=== PATIENT | male | born 1990 | race Caucasian/White ===

== ENCOUNTER → 2018-10-27 | Outpatient (CLI) | payer BC, OTHER ==
[~2018-10-27] MED LIST: ALPR2TAB2 PO; LOXA10CA6 PO; LURA80TA PO; MELA1TAB9 PO; PALI3TAB2 PO; [UNRECOGNIZED DRUG - CODE] PO
--- NOTE | 2018-10-27 13:08 | Diagnostic Imaging Report ---
INDICATION: Left testicular pain. FINDINGS: Right testicle measures 4.4 x 1.8 x 2.9 cm, and the left testicle measures 4.4 x 2.0 x 2.5 cm. Both testes demonstrate normal homogeneous echotexture. No discrete mass is seen. There is blood flow to both testes. There are tiny echogenic structures within both testicles suggestive of microliths. There are small bilateral hydroceles present. The epididymides are unremarkable. There is no varicocele. IMPRESSION: 1. No evidence of testicular mass or vascular compromise. 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 2. Small bilateral hydroceles. Dictated by: Dictated on workstation # [id number]
== END ==
LOC: RAD 12:03
PROVIDERS: ATTEND Nurse Practitioner Family
DX: N43.3 Hydrocele, unspecified (principal)
CPT/HCPCS: 76870

== ENCOUNTER → 2022-05-31 | Outpatient (CLI) | payer SELFPAY | LOC: LAB 11:19 | PROVIDERS: ATTEND Physician Assistant | DX: N46.9 Male infertility, unspecified (principal) | CPT/HCPCS: 89320 ==

== ENCOUNTER 2022-06-27 16:53 | Emergency (ER) | payer OTHER ==
[~2022-06-27] VITALS: Ht 172 cm; Wt 72.0 kg
[2022-06-27 17:10] LABS: BASOPHILS # (AUTO) 0.1 10^3/uL (0.0-0.1); BASOPHILS % (AUTO) 1 % (0-10); EOSINOPHILS # (AUTO) 0.6 10^3/uL (0.0-0.3); EOSINOPHILS % (AUTO) 6 % (0-10); HEMATOCRIT 42 % (40-54); HEMOGLOBIN 14.4 g/dL (13.3-17.7); LYMPHOCYTES # (AUTO) 3.9 10^3/uL (1.0-4.0); LYMPHOCYTES % (AUTO) 38 % (12-44); MEAN CORPUSCULAR HEMOGLOBIN 31 pg (25-34); MEAN CORPUSCULAR HGB CONC 35 g/dL (32-36); MEAN CORPUSCULAR VOLUME 90 fL (80-99); MEAN PLATELET VOLUME 9.2 fL (9.0-12.2); MONOCYTES # (AUTO) 0.5 10^3/uL (0.0-1.0); MONOCYTES % (AUTO) 4 % (0-12); NEUTROPHILS # (AUTO) 5.3 10^3/uL (1.8-7.8); NEUTROPHILS % (AUTO) 51 % (42-75); PLATELET COUNT 511 10^3/uL (130-400); WHITE BLOOD COUNT 10.4 10^3/uL (4.3-11.0)
--- NOTE | 2022-06-27 17:11 | Diagnostic Imaging Report ---
EXAMINATION: Chest 1 view HISTORY: Chest pain COMPARISON: None available. FINDINGS: The lungs are clear without edema or pneumonia. No pleural effusion or pneumothorax. Heart size is normal. IMPRESSION: 1. Clear lungs. Dictated by: Dictated on workstation # [id number]
[2022-06-27] MEDS ORDERED: ASPIRIN 81 MG CHEW (CHILDREN'S ASA) PO STA (17:22)
[2022-06-27 17:29] LABS: PROTHROMBIN TIME PATIENT 13.1 SEC (12.2-14.7)
--- NOTE | 2022-06-27 17:29 | ED Chest Pain ---
General Chief Complaint: Chest Pain Stated Complaint: CHEST PAINS Nursing Triage Note: PT CO OF CHEST PAIN FOR COUPLES TIGHTEN AND SQUEEZING. RATES PAIN 4/10 AT THIS X. PT DOES HAVE ANXIETY AT TIMES. (KIRILL PRETTY) History of Present Illness Date Seen by Provider: Jun 27, 2022 Time Seen by Provider: 17:00 Initial Comments 32 year old male reports for 3-4 days history of intermittent chest pain. Present at this time, 10/22. No history of previous cardiac events, DM, or CAD. History of anxiety, but does not feel anxious or stressed at this time. No n/v/d or diaphoresis. Timing/Duration: 3-4 days Severity/Quality: mild Location: substernal Radiation: no radiation Activities at Onset: none Prior CP/Workup: no prior chest pain ASA po FRAME BUILDER: No NTG SL FRAME BUILDER: No Associated Symptoms: denies symptoms (KIRILL PRETTY) Allergies and Home Medications Allergies Coded Allergies: No Known Drug Allergies (Unverified , 10/04/10) Patient Home Medication List Home Medication List Reviewed: Yes (KIRILL PRETTY) Alprazolam (Xanax) 2 Mg Tablet, 1 TAB PO QID, (Reported) Entered as Reported by: KIRILL SERRA on 01/13/122221 Loxapine Succinate (Loxitane) 10 Mg Capsule, 1 TAB PO HS ET TID PRN, (Reported) Entered as Reported by: KIRILL SERRA on 01/13/122221 Lurasidone Hcl (Latuda) 80 Mg Tablet, 2 TAB PO HS, (Reported) Entered as Reported by: KIRILL SERRA on 01/13/122221 Triazolam (Halcion) 0.125 Mg Tablet, 1-2 TAB PO HS, (Reported) Entered as Reported by: KIRILL SERRA on 01/13/122221 Review of Systems Review of Systems Constitutional: no symptoms reported, see HPI Cardiovascular: See HPI, Chest Pain (KIRILL PRETTY) All Other Systems Reviewed Negative Unless Noted: Yes (KIRILL PRETTY) Past Payugqa-Awqugy-Itzaxu Hx Patient Social History Tobacco Use?: No Use of E-Cig and/or Vaping dev: Yes Use of E-Cig and/or Vaping Javi: Current Everyday User Substance use?: No Alcohol Use?: Yes Alcohol type: Beer Alcohol Frequency: Once in a while Pt feels they are or have been: No (KIRILL PRETTY) Immunizations Up To Date Influenza Vaccine Up-to-Date: No; Not Current First/Initial COVID19 Vaccinat: YES Second COVID19 Vaccination Dio: YES (SUKHWINDERKIRILL KOLB) Family Medical History Reviewed Nursing Family Hx (SUKHWINDERKIRILL KOLB) Physical Exam Vital Signs Vital Signs - First Documented 06/27/22 16:57 Temp 36.9 Pulse 72 Resp 18 B/P (MAP) 124/94 (104) Pulse Ox 98 O2 Delivery Room Air (KATALINA SARABIA MD) Vital Signs Capillary Refill : Less Than 3 Seconds (SUKHWINDERKIRILL KOLB) Height, Weight, BMI Height: '" Weight: lbs. oz. kg; 24.00 BMI Method:Stated General Appearance: No Apparent Distress, WD/WN; No Anxious HEENT: PERRL/EOMI, TMs Normal, Normal ENT Inspection, Pharynx Normal Neck: Full Range of Motion, Normal Inspection, Non Tender, Supple Respiratory: Chest Non Tender, Lungs Clear, Normal Breath Sounds Cardiovascular: Regular Rate, Rhythm, No Edema, Normal Peripheral Pulses Gastrointestinal: Normal Bowel Sounds, Non Tender, Soft Neurologic/Psychiatric: Alert, Oriented x3, No Motor/Sensory Deficits, Normal Mood/Affect Skin: Normal Color, Warm/Dry (SUKHWINDERKIRILL KOLB) Progress/Results/Core Measures Results/Orders Lab Results Laboratory Tests Test 06/27/22 17:00 Range/Units White Blood Count 10.4 4.3-11.0 10^3/uL Red Blood Count 4.66 4.30-5.52 10^6/uL Hemoglobin 14.4 13.3-17.7 g/dL Hematocrit 42 40-54 % Mean Corpuscular Volume 90 80-99 fL Mean Corpuscular Hemoglobin 31 25-34 pg Mean Corpuscular Hemoglobin Concent 35 32-36 g/dL Red Cell Distribution Width 11.9 10.0-14.5 % Platelet Count 511 H 130-400 10^3/uL Mean Platelet Volume 9.2 9.0-12.2 fL Immature Granulocyte % (Auto) 1 % Neutrophils (%) (Auto) 51 42-75 % Lymphocytes (%) (Auto) 38 12-44 % Monocytes (%) (Auto) 4 0-12 % Eosinophils (%) (Auto) 6 0-10 % Basophils (%) (Auto) 1 0-10 % Neutrophils # (Auto) 5.3 1.8-7.8 10^3/uL Lymphocytes # (Auto) 3.9 1.0-4.0 10^3/uL Monocytes # (Auto) 0.5 0.0-1.0 10^3/uL Eosinophils # (Auto) 0.6 H 0.0-0.3 10^3/uL Basophils # (Auto) 0.1 0.0-0.1 10^3/uL Immature Granulocyte # (Auto) 0.1 0.0-0.1 10^3/uL Prothrombin Time 13.1 12.2-14.7 SEC INR Comment 1.0 0.8-1.4 Activated Partial Thromboplast Time 30 24-35 SEC Sodium Level 141 135-145 MMOL/L Potassium Level 3.6 3.6-5.0 MMOL/L Chloride Level 104 98-107 MMOL/L Carbon Dioxide Level 29 21-32 MMOL/L Anion Gap 8 5-14 MMOL/L Blood Urea Nitrogen 10 7-18 MG/DL Creatinine 0.82 0.60-1.30 MG/DL Estimat Glomerular Filtration Rate 120 BUN/Creatinine Ratio 12 Glucose Level 100 70-105 MG/DL Calcium Level 9.7 8.5-10.1 MG/DL Corrected Calcium 8.5-10.1 MG/DL Magnesium Level 2.2 1.6-2.4 MG/DL Total Bilirubin 0.4 0.1-1.0 MG/DL Aspartate Amino Transf (AST/SGOT) 42 H 5-34 U/L Alanine Aminotransferase (ALT/SGPT) 62 H 0-55 U/L Alkaline Phosphatase 135 40-136 U/L Myoglobin 74.8 10.0-92.0 NG/ML Troponin I < 0.028 <0.028 NG/ML Total Protein 8.3 H 6.4-8.2 GM/DL Albumin 4.8 H 3.2-4.5 GM/DL (KATALINA SARABIA MD) Vital Signs/I&O 06/27/22 06/27/22 16:57 18:13 Temp 36.9 36.9 Pulse 72 63 Resp 18 18 B/P (MAP) 124/94 (104) 121/77 Pulse Ox 98 96 O2 Delivery Room Air Room Air (KATALINA SARABIA MD) Blood Pressure Mean: 104 Progress Progress Note : Time: 17:00 Progress Note patient evaluated, will obtain Chest xray, EKG and Aspirin 324 mg orally. 1805 Labs and CXR normal. Patient reports chest pain resolved. Discharge instructions and return precautions reviewed with the patient. All questions answered. (KIRILL PRETTY) Initial ECG Impression Date: Jun 27, 2022 Initial ECG Impression Time: 17:06 Initial ECG Rate: 62 Initial ECG Rhythm: Normal Sinus Initial ECG Intervals: Normal Initial ECG Intervals MS 164, QRS D 94, QT 383, QTc 389. [place] P 63, R 62, T 40. Initial ECG Impression: Normal Initial ECG Comparisson: No Previous ECG Available (KIRILL PRETTY) Diagnostic Imaging Diagonstic Imaging: Xray Plain Films/CT/US/NM/MRI: chest Comments NAME: DAVIS ROCHE [facility] REC#: [id number] PT STATUS: REG ER : 1990 PHYSICIAN: KIRILL PRETTY ADMIT DATE: 06/27/22/ER Draft Date of Exam:06/27/22 CHEST 1 VIEW, AP/PA ONLY EXAMINATION: Chest 1 view HISTORY: Chest pain COMPARISON: None available. FINDINGS: The lungs are clear without edema or pneumonia. No pleural effusion or pneumothorax. Heart size is normal. IMPRESSION: 1. Clear lungs. Dictated on workstation # [email or web address] Dict: 06/27/22 1710 Trans: 06/27/221710 [facility] [id number] Interpreted by: BALJINDER RICHARDS MD Electronically signed by: Reviewed: Reviewed by Me (KIRILL PRTETY) Departure Impression Primary Impression: Non-cardiac chest pain Disposition: 01 HOME, SELF-CARE Condition: Improved Departure-Patient Inst. Decision time for Depature: 18:05 (KIRILL PRETTY) Referrals: [facility] (PCP) Primary Care Physician SOFIA LUCIANO (Family) Primary Care Physician Patient Instructions: Chest Pain That Is Not Caused by the Heart (DC) Add. Discharge Instructions: Continue all medications, as prescribed. Follow up with LENORA Ellison if symptoms not improving or worsening. Return to the Emergency Dept for new, urgent health care needs. All discharge instructions reviewed with patient and/or family. Voiced understanding. ATTENDING PHYSICIAN NOTE: I was physically present as attending physician in the emergency department during the care of this patient, but I was not directly involved in the decision making or delivery of care for this patient. (KATALINA SARABIA MD) KIRILL PRETTY Jun 27, 2022 17:29 KATALINA SARABIA MD Jun 28, 2022 09:29
[2022-06-27 17:45] LABS: CARBON DIOXIDE 29 MMOL/L (21-32); CHLORIDE 104 MMOL/L (98-107); CREATININE SERUM 0.82 MG/DL (0.60-1.30); POTASSIUM 3.6 MMOL/L (3.6-5.0); SODIUM 141 MMOL/L (135-145)
[2022-06-27 17:46] LABS: ALANINE AMINOTRANSFERASE 62 U/L (0-55); ALBUMIN 4.8 GM/DL (3.2-4.5); ALKALINE PHOSPHATASE 135 U/L (40-136); BILIRUBIN,TOTAL 0.4 MG/DL (0.1-1.0); BUN/CREATININE RATIO 12; CALCIUM 9.7 MG/DL (8.5-10.1); GFR ESTIMATED 120; GLUCOSE 100 MG/DL (70-105); MAGNESIUM 2.2 MG/DL (1.6-2.4); TOTAL PROTEIN 8.3 GM/DL (6.4-8.2)
[2022-06-27 18:13] VITALS: BP 121/77
== END 2022-06-27 18:15 | disposition home or self-care (01) ==
LOC: EDUNIT# 16:53 → ER 16:55
DX: R07.89 Other chest pain (principal); F17.290 Nicotine dependence, other tobacco product, uncomplicated
CPT/HCPCS: 36415; 71045; 80053; 83735; 83874; 84484; 85025; 85610; 85730; 93005; 93041